=== PATIENT | male | born 1940 | race Two or more races ===

== ENCOUNTER 2016-10-16 10:02 | Emergency (ER) | payer MEDICARE, OTHER ==
[~2016-10-16] VITALS: Ht 160 cm; Wt 70.3 kg
--- NOTE | 2016-10-16 10:03 | NUR ---
BIB DUE TO RIGHT KNEE PAIN SP FALL 2 DAYS AGO, RIGHT KNEE PAIN NOTED WITH SLIGHT SWELLING, 8/10, SHARP PAIN, NON RADIATING,.PATIENT UNABLE TO BEAR WEIGHT ON RIGHT LEG DT PAIN,. SKIN INTACT. CONNECTED PATIENT TO TELE MONITOR PATIENT,. AWATING FOR MD COOPER
[2016-10-16] MEDS ORDERED: IBUPROFEN 400 MG TABLET ONE (10:20)
--- NOTE | 2016-10-16 10:29 | NUR ---
XRAY IN PROGRESS AT BS
[2016-10-16] MEDS ORDERED: IBUPROFEN 400 MG TABLET PO ONE (10:30)
--- NOTE | 2016-10-16 10:31 | NUR ---
HVAC DESIGN ENGINEER AT BEDSIDE
[2016-10-16 11:18] VITALS: BP 146/79
--- NOTE | 2016-10-16 11:18 | NUR ---
Patient discharged to home in stable condition. Written and verbal after care instructions given. Patient verbalizes understanding of instruction.
--- NOTE | 2016-10-16 11:19 | NUR ---
Crutches dispensed. Pt instructed on proper use of crutches. Patient able to demonstrate correct use of crutches.
== END 2016-10-16 11:21 | disposition home or self-care (01) ==
LOC: ER 10:03
DX: S83.206A Unspecified tear of unspecified meniscus, current injury, right knee, initial encounter (principal); W01.0XXA Fall on same level from slipping, tripping and stumbling without subsequent striking against object, initial encounter; Y93.89 Activity, other specified; Y92.89 Other specified places as the place of occurrence of the external cause; Y99.9 Unspecified external cause status
CPT/HCPCS: 73564-TC; A4606; Z7610

== ENCOUNTER 2016-10-24 09:44 | Outpatient (CLI) | payer MEDICARE, OTHER | END 2016-10-24 23:59 | disposition home or self-care (01) | LOC: MRI 09:44 | PROVIDERS: ATTEND Legal Medicine | DX: S83.241A Other tear of medial meniscus, current injury, right knee, initial encounter (principal); M17.11 Unilateral primary osteoarthritis, right knee; M94.261 Chondromalacia, right knee; M71.561 Other bursitis, not elsewhere classified, right knee; M71.21 Synovial cyst of popliteal space [Baker], right knee; X58.XXXA Exposure to other specified factors, initial encounter; Y93.89 Activity, other specified; Y92.89 Other specified places as the place of occurrence of the external cause; Y99.8 Other external cause status | CPT/HCPCS: 73721-TC ==

== ENCOUNTER 2017-04-14 09:16 | Emergency (ER) | payer MEDICARE, OTHER ==
[~2017-04-14] VITALS: Ht 167.6 cm; Wt 68.9 kg
--- NOTE | 2017-04-14 09:35 | NUR ---
PRESENTS TO ER C/O L ANKLE PAIN AND SWELLING S/P FALL OFF OF LADDER LAST NIGHT. NO DISCOLORATION, FULL ROM. A/OX 4. BREATHING EVEN AND UNLABORED. NO SOB. VITALS STABLE. SAFETY AND COMFORT MEASURES IN PLACE. AWAITING MD ORDERS.
--- NOTE | 2017-04-14 10:05 | NUR ---
ANIMAL NUTRITION CONSULTANT AT BEDSIDE.
--- NOTE | 2017-04-14 10:30 | NUR ---
LEFT POSTERIOR SHORT LEG SPLINT APPLIED
--- NOTE | 2017-04-14 11:10 | NUR ---
Patient discharged to home in stable condition. Written and verbal after care instructions given. Patient verbalizes understanding of instruction.
[2017-04-14 11:15] VITALS: BP 122/60
== END 2017-04-14 11:16 | disposition home or self-care (01) ==
LOC: ER 09:19
DX: S82.55XA Nondisplaced fracture of medial malleolus of left tibia, initial encounter for closed fracture (principal); W11.XXXA Fall on and from ladder, initial encounter; Y93.89 Activity, other specified; Y92.89 Other specified places as the place of occurrence of the external cause; Y99.8 Other external cause status
CPT/HCPCS: 73610-TC; A4606; Z7610

== ENCOUNTER 2017-04-19 08:44 | Outpatient (CLI) | payer MEDICARE, OTHER ==
[2017-04-19 09:21] LABS: BASOPHILS # (AUTO) 0.1 /CMM (0.0-0.2); BASOPHILS % (AUTO) 1.4 % (0.0-2.0); EOSINOPHILS # (AUTO) 0.4 /CMM (0.0-0.7); EOSINOPHILS % (AUTO) 7.2 % (0.0-6.0); HEMATOCRIT 43 % (39-51); HEMOGLOBIN 14.1 g/dL (13.5-17.5); LYMPHOCYTES % (AUTO) 37.9 % (20.0-44.0); MEAN CORPUSCULAR HEMOGLOBIN 31 PG (26.0-33.0); MEAN CORPUSCULAR HGB CONC 33 g/dl (31.0-36.0); MEAN CORPUSCULAR VOLUME 93 fL (80-96); MONOCYTES # (AUTO) 0.4 /CMM (0.1-1.30); MONOCYTES % (AUTO) 7.9 % (2.0-12.0); NEUTROPHILS # (AUTO) 2.4 /CMM (1.8-8.9); NEUTROPHILS % (AUTO) 45.6 % (43.0-81.0); PLATELET COUNT (AUTO) 302 /CMM (150-450); RDW COEFFICIENT OF VARIATION 13.6 (11.5-15.0); RED BLOOD CELL COUNT(AUTO) 4.61 MIL/uL (4.5-6.0); WHITE BLOOD COUNT (AUTO) 5.3 K/uL (4.3-11.0)
[2017-04-19 09:24] LABS: APPEARANCE,URINE CLEAR (CLEAR); BILIRUBIN,URINE NEGATIVE (NEGATIVE); BLOOD, URINE NEGATIVE Ery/uL (NEGATIVE); COLOR,URINE YELLOW (YELLOW); KETONES,URINE NEGATIVE (NEGATIVE); LEUKOCYTE ESTERASE ,URINE NEGATIVE (NEGATIVE); NITRITE, URINE NEGATIVE (NEGATIVE); PROTEIN,URINE NEGATIVE (NEGATIVE); UGLUCOSE NEGATIVE (NEGATIVE); UROBILINOGEN,URINE 0.2 EU/dL (0.2)
[2017-04-19 09:38] LABS: INR 0.95 (0.87-1.13); PROTHROMBIN TIME 9.9 SECS (9.5-12.7)
[2017-04-19 09:40] LABS: ALANINE AMINOTRANSFERASE 25 U/L (12-78); ALBUMIN 3.7 g/dL (3.4-5.0); ALKALINE PHOSPHATASE 59 U/L (46-116); ASPARTATE AMINOTRANSFERASE 15 U/L (15-37); BILIRUBIN,TOTAL 0.5 mg/dL (0.2-1.0); CALCIUM, SERUM 8.8 mg/dL (8.5-10.1); CARBON DIOXIDE 27 mmol/L (21-32); CHLORIDE 108 mmol/L (98-107); CREATININE 0.8 mg/dL (0.6-1.3); GLUCOSE 106 mg/dL (74-106); POTASSIUM 4.3 mmol/L (3.5-5.1); SODIUM SERUM 143 mmol/L (136-145); TOTAL PROTEIN, SERUM 7.5 g/dL (6.4-8.2); UREA NITROGEN, BLOOD 14 mg/dL (7-18)
== END 2017-04-19 23:59 | disposition home or self-care (01) ==
LOC: LAB 08:44
PROVIDERS: ATTEND Legal Medicine
DX: Z01.818 Encounter for other preprocedural examination (principal); I70.0 Atherosclerosis of aorta; M47.894 Other spondylosis, thoracic region; J98.4 Other disorders of lung; I10 Essential (primary) hypertension; E78.5 Hyperlipidemia, unspecified; D68.59 Other primary thrombophilia; M17.11 Unilateral primary osteoarthritis, right knee
CPT/HCPCS: 36415; 71020-TC; 80053-TC; 81000-TC; 85025-TC; 85610-TC; 85730-TC

== ENCOUNTER 2017-04-24 05:15 | Inpatient (IN) | payer MEDICARE, OTHER ==
[~2017-04-24] VITALS: Ht 160 cm; Wt 68.0 kg
[2017-04-24] MEDS ORDERED: ANESTHESIA TRAY IN PYXIS 1 EA TRAY MC ONE (06:14)
[2017-04-24] MEDS ORDERED: BACITRACIN 50000 UNITS/VIAL ONE (06:14)
[2017-04-24] MEDS ORDERED: CEFAZOLIN SODIUM/DEXTROSE,ISO 50 ML IV ONE (06:25)
[2017-04-24] MEDS ORDERED: SEVOFLURANE 250 ML BOTTLE IH ONE (06:53)
[2017-04-24] MEDS ORDERED: BUPIVACAINE 0.5 % PF 150 MG/30 ML VIAL ONE (07:23)
[2017-04-24] MEDS ORDERED: HYDROMORPHONE INJ 2 MG/ML DISP.SYRIN ONE (07:49)
[2017-04-24 08:50] VITALS: BP 145/75
--- NOTE | 2017-04-24 08:50 | NUR ---
MS RN ADMITTING NOTES ADMITTED PT FROM [facility] S/P ORIF LEFT DISTAL MALLEOLUS (LT ANKLE) BY DR BLACK.PT IS ALERT AND ORIENTED X4.VERBALLY RESPONSIVE.ABLE TO MAKE NEEDS KNOWN.WITH PARTIAL CAST ON LEFT ANKLE INTACT WITH SURGICAL DRESSING CLEAN AND DRY.NO STRIKE THROUGH NOTED..C/O MILD PAIN SCALE 2/10 BUT REFUSED PAIN MEDS AT THIS TIME.[facility] SCREENING TO RT NARES DONE AND SENT TO LAB. AT BEDSIDE DILIGENTLY ATTENDING TO PT'S NEEDS.CALL LIGHT PLACED WITHIN REACH.
[2017-04-24] MEDS ORDERED: HYDROCODONE/APAP 5/325MG 1 EACH TABLET PO PRN (11:00)
[2017-04-24] MEDS ORDERED: HYDROCODONE/APAP 10/325MG 1 EA TABLET PO PRN (11:00)
--- NOTE | 2017-04-24 16:30 | NUR ---
DISCHARGED PT HOME VIA PRIVATE CAR WITH STABLE V/S ACCOMPANIED BY HIS ,YOSELIN.DENIES PAIN OR DISTRESS.
== END 2017-04-24 16:30 | disposition home or self-care (01) | DRG 494 ==
LOC: DS 05:15 → MED 09:28
PROVIDERS: ADMIT Specialist
PROC: 0QSH04Z Reposition Left Tibia with Internal Fixation Device, Open Approach (ICD-10-PCS; principal; 2017-04-24 07:06)
DX: S82.52XA Displaced fracture of medial malleolus of left tibia, initial encounter for closed fracture (principal); X58.XXXA Exposure to other specified factors, initial encounter; Y93.9 Activity, unspecified; Y92.009 Unspecified place in unspecified non-institutional (private) residence as the place of occurrence of the external cause
CPT/HCPCS: 87081-TC; A4606; A6253; A6402; J0690; J1100; J1170; J2405; J2704; J3490

== ENCOUNTER 2020-04-13 11:16 | Emergency (ER) | payer MEDICARE, OTHER ==
[~2020-04-13] VITALS: Ht 160 cm; Wt 68.0 kg
[2020-04-13 11:32] VITALS: BP 140/82
--- NOTE | 2020-04-13 11:46 | NUR ---
Patient a/ox4, breathing even and unlabored, denies any symptoms at this time. Denies difficulty breathing. Covid swab sent. Patient discharged to home in stable condition. Written and verbal after care instructions given. Patient verbalizes understanding of instruction.
== END 2020-04-13 11:48 | disposition home or self-care (01) ==
LOC: ER 11:22
DX: Z20.828 Contact with and (suspected) exposure to other viral communicable diseases (principal); R03.0 Elevated blood-pressure reading, without diagnosis of hypertension; Z98.42 Cataract extraction status, left eye
CPT/HCPCS: C9803; U0003

== ENCOUNTER 2022-03-21 08:51 | Outpatient (CLI) | payer MEDICARE | END 2022-03-21 23:59 | disposition home or self-care (01) | LOC: MRI 08:51 | PROVIDERS: ATTEND Legal Medicine | DX: M25.811 Other specified joint disorders, right shoulder (principal); M25.411 Effusion, right shoulder | CPT/HCPCS: 73221-TC ==

== ENCOUNTER 2024-05-14 11:12 | Emergency (ER) | payer MEDICARE, OTHER ==
[~2024-05-14] VITALS: Ht 160 cm; Wt 65.8 kg
[2024-05-14] MEDS ORDERED: IBUP-1490 PO (13:56)
[2024-05-14] MEDS ORDERED: IBUPROFEN 400 MG TABLET ONE (14:26)
[2024-05-14] MEDS: IBUPROFEN 400 MG TABLET PO ONE (14:29)
[2024-05-14 14:48] VITALS: BP 174/74; TEMP 98.3; O2SAT 96
== END 2024-05-14 14:48 | disposition home or self-care (01) ==
LOC: ER 11:15
DX: M54.32 Sciatica, left side (principal)
CPT/HCPCS: 99284; 72131; 72192; A6403